=== PATIENT | female | born 1980 | race African-American/Black ===

== ENCOUNTER 2016-12-06 07:23 | Outpatient (CLI) ==
[2015-05-01 00:14] VITALS: BMI 41.4
--- NOTE | 2016-12-06 08:41 | US ---
EXAM: Right upper quadrant abdominal ultrasound. History: Elevated liver enzymes. Technique: Multiple sonographic images through the abdomen were obtained. Color duplex Doppler was used to interrogate vascular flow. Findings: The pancreas is not well visualized due to shadowing bowel gas. The liver is not enlarged according to the sonographic measurement given. There is antegrade flow w ithin the main portal vein. The periportal echoes within the liver are maintained and the liver is not echogenic compared to the adjacent right renal cortex. No focal liver lesions identified sonogr aphically. Limited visualization of the right kidney demonstrates no evidence for hydronephrosis. No shadowing gallstones. Gallbladder wall is not thickened. Common bile duct measures 0.4 cm in ca liber. Impression: No acute sonographic findings. No sonographic abnormality of the liver.
== END 2016-12-06 07:24 | disposition home or self-care (01) ==
LOC: RAD 07:23
PROVIDERS: ATTEND Family Medicine
DX: R74.8 Abnormal levels of other serum enzymes (principal)